=== PATIENT | male | born 1970 | race Caucasian/White ===

== ENCOUNTER 2024-05-15 06:27 | Outpatient (CLI) | payer BC, MEDICAID, SELFPAY ==
--- NOTE | 2024-05-15 | ECG_ITS ---
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 Some nonspecific T wave changes. Low voltage complexes in the precordial leads. At the baseline, the patient's blood pressure was 159/80 mm Hg with a heart rate of 86. The patient exercised for 8 minutes and 47 seconds on a standard [place] protocol. Patient attained a maximum heart rate of 152 beats per minute(92% of the maximum predicted heart rate) with a blood pressure at the peak exercise of 197/52 mm Hg. The EKG at the peak exercise revealed some nonspecific ST-T changes. Patient did not have any chest pain or any significant arrhythmis with the exercise Sestamibi was injected 1 minute prior to the peak exercise During the recovery phase, there were no new changes. Blood pressure at the end of the recovery phase was 164/67 mm Hg with a heart rate of 100 per minute. CONCLUSION: 1. No significant EKG changes with the treadmill exercise 2. No exercise-induced chest pain or cardiac arrhythmia 3. Good exercise tolerance, attained a maximum of 10.2 METs 4. Sestamibi/Sestamibi perfusion results pending; see separate report. Electronically Signed On 05-20-2024 07:47:56 SENIOR EMBEDDED SOFTWARE ENGINEER by Chucky Rodriguez M.D. [email or web address]
[2024-05-15 06:54] VITALS: BMI 36.5
--- NOTE | 2024-05-15 06:57 | NMCV_ITS ---
NM manuel perf SPECT r/s* [id number] Richar Mohamud Age: 53 Gender: M : 1970 Exam Date: 05/15/2024 07:52 Ordering Phys: Chana Bryant DIRECTOR OF PROGRAM MANAGEMENT Technologist: RICARDO Polanco Exam Location: [facility] [place] Indications: CP STRESS TEST Please see separate stress test report in [facility] for full findings IMAGE PROTOCOL Rest/Stress 1 Exercise Day Radiopharmaceutical Dose (mCi) Administration Site Administered by Rest: Tc-99m 11 IV Shayy Honeycutt, PRODUCT SUPPORT REP Sestamibi Stress:Tc-99m 33 IV Shayy Yinka, PRODUCT SUPPORT REP Sestamibi Rest: 15-May-2024 60 Discovery 630 Stress: 15-May-2024 30 Discovery 630 Radiopharmaceutical was injected at 85 % maximum heart rate. Images obtained in supine and prone position. SPECT RESULTS Technical Quality: Good Raw Data Analysis: Normal Image Corrections: No attenuation or motion correction applied Summed Stress Score: 2 Summed Rest Score: 3 Summed Difference Score: 0 PERFUSION FINDINGS A small area of slightly decreased tracer uptake was noted in the mid inferolateral and apical lateral region. No significant reversibility was noted in this region. FUNCTIONAL RESULTS (calculated via Gated SPECT) Stress Image LV EF (%): 88 Stress EDV (mL):43 TID: 0.73 Stress ESV (mL):5 FUNCTIONAL FINDINGS: Segmental wall motion analysis revealing no gross wall motion abnormalities IMPRESSIONS 1. Myocardial perfusion imaging revealing a small area of persistent decreased tracer uptake involving the interval mid inferolateral and apical lateral regions suggesting myocardial scarring versus attenuation artifact 2. Normal LV ejection fraction of 8%. 3. LV wall motion analysis revealing no gross wall motion abnormalities. 4. Normal LV volume Low probability for coronary ischemia, based on the above findings Dr Chucky Rodriguez MD FACC (Electronically Signed) Final Date: 15 May 2024 13:13 S
--- NOTE | 2024-05-15 07:07 | USCV_ITS ---
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: LOGA [place]am [place] [facility] [place] Indication: cp BP: 130 / 80 HR: 72 Rhythm: Sinus Technical Quality: Adequate MEASUREMENTS (Male / Female) Normal Values 2D ECHO LV Diastolic Diameter PLAX 4.0 cm 4.2 - 5.9 / 3.9 - 5.3 cm IVS Diastolic Thickness 1.7 cm 0.6 - 1.0 / 0.6 - 0.9 cm IVS Systolic Thickness 1.7 cm LVPW Diastolic Thickness 1.5 cm 0.6 - 1.0 / 0.6 - 0.9 cm LVPW Systolic Thickness 2.3 cm LVOT Diameter 2.0 cm LV Ejection Fraction 2D Teich 58.5 % LV Ejection Fraction MOD 4C 60.6 % LV Ejection Fraction MOD 2C 55.9 % LV Ejection Fraction 2C AL 58.6 % LA Diameter 2.1 cm RA Systolic Volume 4C AL 16.9 ml RA Systolic Volume 4C MOD 16.3 ml Aorta at Sinotubular Diameter 2.7 cm M-MODE LA Ao Ratio MM 1.1 AV Cusp Separation MM 1.5 cm DOPPLER AV Peak Velocity 115.0 cm/s LVOT Peak Velocity 103.0 cm/s AV Area Cont Eq vti 2.9 cm squared AV Area Cont Eq pk 2.8 cm squared MV Peak Velocity 115.0 cm/s MV Area PHT 3.6 cm squared Mitral E to A Ratio 0.8 TV Peak Velocity 155.5 cm/s TR Peak Velocity 181.0 cm/s TR Peak Gradient 13.1 mmHg TV Peak E Velocity 72.0 cm/s PV Peak Velocity 152.0 cm/s FINDINGS Left Ventricle Contrast echocardiogram was performed to evaluate the LV ejection fraction The LV size appears to be within normal limits Moderate concentric left trickle hypertrophy Normal LV ejection fraction of 58.5% No wall motion abnormalities noted Right Ventricle Right Atrium Left Atrium Mitral Valve Aortic Valve Tricuspid Valve Pulmonic Valve Pericardium Aorta IVC CONCLUSIONS Contrast echocardiogram was performed to evaluate the LV ejection fraction (Echo contrast - Optison was used to delineate the endocardium and to estimate the LV ejection fraction) The LV size appears to be within normal limits Moderate concentric left trickle hypertrophy Normal LV ejection fraction of 58.5% No wall motion abnormalities noted. Dr Chucky Rodriguez MD FACC (Electronically Signed) Final Date: 17 May 2024 15:06 S
[2024-05-15] MEDS: perflutren protein-a microsphr 0.22 mg/mL SDV 3 mL IV (08:11)
[2024-05-15 08:40] VITALS: BP 164/67; PULSE 100
== END 2024-05-15 06:28 | disposition home or self-care (01) ==
LOC: CDL 06:28
PROVIDERS: PCP Nurse Practitioner Family; Visit Provider Nurse Practitioner Family
DX: E87.70 Fluid overload, unspecified (principal); R93.1 Abnormal findings on diagnostic imaging of heart and coronary circulation
CPT/HCPCS: 36415; 78452; 93017; A9500; C8924